=== PATIENT | female | born 1960 | race Caucasian/White ===

== ENCOUNTER 2018-12-28 08:37 | Inpatient (IN) ==
--- NOTE | 2018-11-27 10:45 | Anesthesiology Consultation ---
Date of Service November 27, 2018 Assessment & Plan (1) Encounter for pre-operative examination: Chart Review Chart Review: Acceptable Risk for Surgery and Patient seen in Pre Admission Testing Teaching & Discussion Instructed NPO after midnight before surgery, except medications with 15 cc of water. Medication instructions provided according to the PAT guidelines. History Surgery Operation Date: 12/28/18 07:00 Proposed Procedures p Right Total Shoulder Replacement - Cristian Montanez, Height/Weight Height: 5 ft Weight: 53.3 kg Allergies Allergy/AdvReac Type Severity Reaction Status Date / Time amoxicillin Allergy Mild Rash Verified 11/22/18 09:27 codeine Allergy Mild N/V Verified 11/22/18 09:27 iodine Allergy Mild THROAT Verified 11/22/18 09:27 SWELLING latex Allergy Mild SKIN Verified 11/22/18 09:27 IRRITATION Medications Home Medications Medication Instructions Recorded Confirmed Last Taken acetaminophen [Tylenol Extra 500 mg PO Q6H PRN 11/22/18 11/22/18 Unknown Strength] albuterol sulfate [ProAir HFA] 2 puff INHALATION QID PRN 11/22/18 11/22/18 Unknown amitriptyline 50 mg PO HS 11/22/18 11/22/18 Unknown cyanocobalamin (vitamin B-12) 1,000 mcg PO QAM 11/22/18 11/22/18 Unknown [Vitamin B-12] dextroamphetamine-amphetamine 30 mg PO BID 11/22/18 11/22/18 Unknown [Adderall] ferrous sulfate [Iron (ferrous 325 mg PO QAM 11/22/18 11/22/18 Unknown sulfate)] fluoxetine [Prozac] 20 mg PO QAM 11/22/18 11/22/18 Unknown levothyroxine [Synthroid] 125 mcg PO QAM 11/22/18 11/22/18 Unknown magnesium 500 mg PO QAM 11/22/18 11/22/18 Unknown meclizine 12.5 mg PO TID PRN 11/22/18 11/22/18 Unknown meloxicam [Mobic] 15 mg PO QAM 11/22/18 11/22/18 Unknown multivitamin 1 cap PO QAM 11/22/18 11/22/18 Unknown pantoprazole [Protonix] 40 mg PO QAM 11/22/18 11/22/18 Unknown potassium chloride 20 meq PO TID 11/22/18 11/22/18 Unknown rizatriptan 10 mg PO UD PRN 11/22/18 11/22/18 Unknown triamterene-hydrochlorothiazid 1 cap PO QAM 11/22/18 11/22/18 Unknown Past Medical History Medical History Asthma PRN INHALER, HAS NOT USED INHALER SINCE ESOPHAGEAL HERNIA REPAIR IN 06/19/18 Attention deficit disorder (ADD) GERD (gastroesophageal reflux disease) Hypothyroidism Migraine Osteoarthritis Temporomandibular joint disorder NEVER LOCKED--WORE A SPLINT FOR A WHILE YEARS AGO, SYMPTOMS RESOLVED. Exercise / Class Metabolic Activity 1 > 8 Run/Swim/Ski/Tennis ("VERY" ACTIVE, N CP OR SOB) Past Surgical History Surgical History History of lung surgery THORACOSCOPY --REPAIR OF COLLAPSED LUNG History of repair of hiatal hernia History of tonsillectomy and adenoidectomy Hx of laparoscopy FOR INFERTILITY Hx of partial thyroidectomy FOR BENIGN TUMOR S/P myringotomy with insertion of tube Past Anesthesia History No Family Hx of Anesthesia Complications and Other PT REPORTS HER O2 DIPPED A LITTLE LOW IN PACU AFTER ESOPHAGEAL HERNIA REPAIR IN 06/2018, HAD O2 VIA NC BIEFLY, NO REINTUBATION OR TRANSFER TO HIGHER LEVEL OF CARE. History of PONV No Hx of Motion Sickness and History of PONV Social History Smoking Status: Never smoker Do You Dip or Chew Tobacco: No Hx Alcohol Use: No Hx Substance Use: No substance use type: does not use Review of Systems Pt denies any recent chest pain, shortness of breath, palpitations, cough, fever or URI. +migraines, +seasonal allergies Physical Exam Vital Signs BP: 135/93 (pt reports usually elevated at medical appointments, takes at home and is OK. She is visibly anxious) P: 109bpm SPO2: 98% RA T: 98.1 F R: 16 ENMT Mouth: + chipped teeth (one broken L lower molar) and + small oral opening; no dental restorations and no loose teeth Thyromental Distance: < 3.5 Finger Breadths (2.5) Mallampati Class: II Neck + shortened thyromental distance; neck extension not limited Respiratory normal respiratory effort Auscultation: lungs clear to auscultation bilaterally Cardiovascular Rate/Rhythm: regular rhythm and + tachycardic Heart Sounds: no murmur Vessels: no carotid bruit Extremities: no edema Testing Laboratory Results 11/27/18 11:03 11/27/18 11:03 11/27/18 11/27/18 11:03 11:03 PT 10.3 INR 1.0 APTT 26.2 Blood Type A Positive Antibody Screen NEGATIVE Electrocardiogram Date: 11/27/18 Findings: + ST @ (102) Low voltage QRS. Chest X-Ray Date: 11/27/18 FINDINGS: The heart is at the upper limits of normal in size. There is no litzy lure. There is no focal bony consolidation. There are no pleural effusions. Small spring-shaped radiopacities within the upper abdomen, likely secondary to a prior hernia repair. IMPRESSION: No active disease in the chest.
--- NOTE | 2018-11-27 10:55 | PAT Medication Instructions ---
Medication Instructions Date of Service November 27, 2018 Home Medications acetaminophen [Tylenol Extra Strength] 500 mg PO Q6H PRN albuterol sulfate [ProAir HFA] 2 puff INHALATION QID PRN amitriptyline 50 mg PO HS cyanocobalamin (vitamin B-12) [Vitamin B-12] 1,000 mcg PO QAM dextroamphetamine-amphetamine [Adderall] 30 mg PO BID ferrous sulfate [Iron (ferrous sulfate)] 325 mg PO QAM fluoxetine [Prozac] 20 mg PO QAM levothyroxine [Synthroid] 125 mcg PO QAM magnesium 500 mg PO QAM meclizine 12.5 mg PO TID PRN meloxicam [Mobic] 15 mg PO QAM multivitamin 1 cap PO QAM pantoprazole [Protonix] 40 mg PO QAM potassium chloride 20 meq PO TID rizatriptan 10 mg PO UD PRN triamterene-hydrochlorothiazid 1 cap PO QAM ASK your surgeon for instructions meloxicam [Mobic] 15 mg PO QAM DO NOT take the morning of surgery cyanocobalamin (vitamin B-12) [Vitamin B-12] 1,000 mcg PO QAM dextroamphetamine-amphetamine [Adderall] 30 mg PO BID ferrous sulfate [Iron (ferrous sulfate)] 325 mg PO QAM magnesium 500 mg PO QAM multivitamin 1 cap PO QAM potassium chloride 20 meq PO TID triamterene-hydrochlorothiazid 1 cap PO QAM Take morning of surgery With a small sip of water, OTHERWISE NOTHING TO EAT OR DRINK AFTER MIDNIGHT: acetaminophen [Tylenol Extra Strength] 500 mg PO Q6H PRN (if needed, may be taken up to four hours before surgery) albuterol sulfate [ProAir HFA] 2 puff INHALATION QID PRN (if needed, and bring with you to the hospital) fluoxetine [Prozac] 20 mg PO QAM levothyroxine [Synthroid] 125 mcg PO QAM meclizine 12.5 mg PO TID PRN (if needed) pantoprazole [Protonix] 40 mg PO QAM rizatriptan 10 mg PO UD PRN (if needed) Take evening before surgery acetaminophen [Tylenol Extra Strength] 500 mg PO Q6H PRN (if needed) albuterol sulfate [ProAir HFA] 2 puff INHALATION QID PRN (if needed) amitriptyline 50 mg PO HS dextroamphetamine-amphetamine [Adderall] 30 mg PO BID meclizine 12.5 mg PO TID PRN (if needed) potassium chloride 20 meq PO TID rizatriptan 10 mg PO UD PRN (if needed) Other Notes If you have any questions please call us at [phone] or [phone] or [phone] or [phone]
--- NOTE | 2018-11-27 11:43 | XRay Report ---
XR chest Pre-admission PA/Lat CLINICAL HISTORY: Preoperative chest COMPARISON STUDY: No previous studies for comparison. FINDINGS: The heart is at the upper limits of normal in size. There is no failure. There is no focal bony consolidation. There are no pleural effusions. Small spring-shaped radiopacities within the uppe r abdomen, likely secondary to a prior hernia repair[ IMPRESSION: No active disease in the chest. Electronically signed by: Blake Julian M.D. 11/27/2018 11:42 AM
[2018-11-27 11:44] LABS: Basophils # (auto) 0.04 K/uL (0-0.2); Basophils % (auto) 0.7 %; Eosinophils # (auto) 0.09 K/uL (0-0.5); Eosinophils % (auto) 1.6 %; Hematocrit (blood only) 38.7 % (37-47); Hemoglobin 13.4 g/dL (12.0-16.0); Immature Granulocytes # (auto) 0.01 K/uL (0.00-0.02); Immature Granulocytes % (auto) 0.2 %; Lymphocytes # (auto) 1.53 K/uL (1.2-3.4); Lymphocytes % (auto) 26.5 %; Mean Corpuscular Hgb Conc 34.6 g/dL (32-36); Mean Corpuscular Volume 95.1 fL (80-100); Monocytes # (auto) 0.48 K/uL (0.11-0.59); Monocytes % (auto) 8.3 %; Neutrophils # (auto) 3.63 K/uL (1.4-6.5); Neutrophils % (auto) 62.7 %; Platelet Count 429 K/uL (130-400); RDW Coefficient of Variation 13.9 % (11.5-14.5); Red Blood Count 4.07 M/uL (4.2-5.4); White Blood Count 5.78 K/uL (4.8-10.8)
[2018-11-27 11:51] LABS: BUN Creatinine Ratio 19.9 (10-20); Calcium 9.7 mg/dl (8.5-10.1); Creatinine Clr Calc Pharmacy 56.5 ml/min; Est GFR (African American) 97.1; Est GFR (Non-African American) 83.8; Potassium 3.9 mmol/L (3.5-5.1)
[2018-11-27 12:04] LABS: Partial Thromboplastin Time 26.2 Seconds (21.0-31.0); Prothrombin Time 10.3 Seconds (9.0-12.0)
--- NOTE | 2018-12-27 14:33 | History & Physical Report ---
Date of Service December 27, 2018 Assessment & Plan (1) Avascular necrosis of head of humerus: We will proceed with a right total shoulder arthroplasty. Postoperatively she will be placed in a sling and kept overnight for postop medical management. She plans to use [facility] outpatient physical therapy upon discharge. Present on Admission?: Yes History of Present Illness Chief Complaint: Avascular necrosis of the right shoulder Primary Care Provider: Zia Perea is a pleasant 58-year-old female who is been dealing with a 6-month history of increasing right shoulder pain. She does not recall any traumatic events. X-rays and especially MRI of the shoulder showed advanced osteoarthrit is and avascular necrosis. After failing conservative treatment, she has elected proceed with a right total shoulder arthroplasty. Allergies Allergy/AdvReac Type Severity Reaction Status Date / Time amoxicillin Allergy Mild Rash Verified 11/22/18 09:27 codeine Allergy Mild N/V Verified 11/22/18 09:27 iodine Allergy Mild THROAT Verified 11/22/18 09:27 SWELLING latex Allergy Mild SKIN Verified 11/22/18 09:27 IRRITATION Home Medications Home Medications Medication Instructions Recorded Confirmed Type acetaminophen [Tylenol Extra 500 mg PO Q6H PRN 11/22/18 11/22/18 History Strength] albuterol sulfate [ProAir HFA] 2 puff INHALATION QID PRN 11/22/18 11/22/18 History amitriptyline 50 mg PO HS 11/22/18 11/22/18 History cyanocobalamin (vitamin B-12) 1,000 mcg PO QAM 11/22/18 11/22/18 History [Vitamin B-12] dextroamphetamine-amphetamine 30 mg PO BID 11/22/18 11/22/18 History [Adderall] ferrous sulfate [Iron (ferrous 325 mg PO QAM 11/22/18 11/22/18 History sulfate)] fluoxetine [Prozac] 20 mg PO QAM 11/22/18 11/22/18 History levothyroxine [Synthroid] 125 mcg PO QAM 11/22/18 11/22/18 History magnesium 500 mg PO QAM 11/22/18 11/22/18 History meclizine 12.5 mg PO TID PRN 11/22/18 11/22/18 History meloxicam [Mobic] 15 mg PO QAM 11/22/18 11/22/18 History multivitamin 1 cap PO QAM 11/22/18 11/22/18 History pantoprazole [Protonix] 40 mg PO QAM 11/22/18 11/22/18 History potassium chloride 20 meq PO TID 11/22/18 11/22/18 History rizatriptan 10 mg PO UD PRN 11/22/18 11/22/18 History triamterene-hydrochlorothiazid 1 cap PO QAM 11/22/18 11/22/18 History Past Med/Surg History Medical History Asthma PRN INHALER, HAS NOT USED INHALER SINCE ESOPHAGEAL HERNIA REPAIR IN 06/19/18 Attention deficit disorder (ADD) GERD (gastroesophageal reflux disease) Hypothyroidism Migraine Osteoarthritis Temporomandibular joint disorder NEVER LOCKED--WORE A SPLINT FOR A WHILE YEARS AGO, SYMPTOMS RESOLVED. Surgical History History of lung surgery THORACOSCOPY --REPAIR OF COLLAPSED LUNG History of repair of hiatal hernia History of tonsillectomy and adenoidectomy Hx of laparoscopy FOR INFERTILITY Hx of partial thyroidectomy FOR BENIGN TUMOR S/P myringotomy with insertion of tube Social History Preferred Language: Arabic Communication Ability: Effective Wood Form Builder Required: No Beliefs That Will Affect Care: None Current Living Situation: Spouse Other Information That Helps Us Care for You: No Feels Safe at Home: Yes Safety Concerns: Feels Safe At This Time Smoking Status: Never smoker Do You Dip or Chew Tobacco: No Second Hand Exposure: No Tobacco Cessation Education Requested by Patient: No Hx Alcohol Use: No Hx Substance Use: No Review of Systems All systems reviewed & are unremarkable except as noted in HPI & below Physical Exam Constitutional: WD/WN, vitals as above Eyes: PERRL, conjunctivae normal, anicteric sclerae ENMT: external ear and nose normal, oropharynx normal Neck: trachea midline, no thyromegaly Respiratory: normal respiratory effort Cardiovascular: RRR, no murmur, no edema Gastrointestinal (Abdomen): normal bowel sounds, soft, nontender, no hepatosplenomegaly Musculoskeletal: Physical examination of the right shoulder reveals decreased range of motion and crepitis throughout. There is good strength with full can testing and external rotation. There is tenderness palpation along the anterior glenohumeral joint line. The right upper extremity is neurovascularly intact. Psychiatric: A+Ox3, euthymic affect Results & Data Diagnostic Findings Radiographs of the right shoulder show osteoarthritis of the glenohumeral joint. There is joint space narrowing, osteophyte formation. MRI of the shoulder does show advancing osteoarthritis and signs of avascular necrosis. The rotator cuff is intact.
[~2018-12-28 08:37] MED LIST: ACETAMINOPHEN 500 MG TAB PO SCH; CEFAZOLIN 2000MG 2,000 MG/15 ML SYR IV SCH; FAMOTIDINE 20 MG TAB PO SCH; GABAPENTIN 300 MG x 2 PO SCH; LR 15ML/HR IV SCH; LR 60ML/HR IV SCH; ROPIVACAINE 0.5% HCL/PF 150 MG, BUPIVACAINE 0.5% MPF 30 ML, EPINEPHrine 30MG/30ML (OR U... INFIL SCH; TRANEXAMIC ACID 1,000 MG **IV Intra-op IV SCH; TRANEXAMIC ACID 1,000 MG **IV Pre-op IV SCH
--- NOTE | 2018-12-28 09:38 | History & Physical Bridge Note ---
Date of Service December 28, 2018 History & Physical Bridge Note I have examined the patient, reviewed the History & Physical and in the interval since the performance of the History & Physical I have noted the following changes of clinical significance: no changes noted
[2018-12-28] MEDS ORDERED: BUPIVACAINE 0.5 % 5 MG/1 ML PF 10ML VIAL ONE (09:48)
[2018-12-28] MEDS ORDERED: SCOPOLAMINE 1.5 MG TDSY ONE (10:03)
[2018-12-28] MEDS ORDERED: GLYCOPYRROLATE 0.2 MG/ML VIAL ONE (10:21)
[2018-12-28] MEDS ORDERED: NEOSTIGMINE METHYLSULFATE 5 MG/5 ML SYR ONE (10:21)
[2018-12-28] MEDS ORDERED: LIDOCAINE HCL 2% 2 ML VIAL/AMP(20MG/ML) INFIL ONE (10:21)
[2018-12-28] MEDS ORDERED: DEXAMETHASONE SOD INJ 4 MG/ML VIAL ONE (10:21)
[2018-12-28] MEDS ORDERED: ROCURONIUM BROMIDE 10 MG/ML 5 ML VIAL ONE (10:21)
[2018-12-28] MEDS ORDERED: ONDANSETRON INJ 2 MG/ML 2 ML VIAL ONE (10:21)
[2018-12-28] MEDS ORDERED: PROPOFOL IV EMULSION 10 MG/ML 20 ML VIAL IV ONE (10:21)
[2018-12-28] MEDS ORDERED: LARYING-O-JET KIT (LTA) ONE (10:21)
[2018-12-28] MEDS ORDERED: fentaNYL citrate 100 MCG/2 ML VIAL ONE (10:22)
[2018-12-28] MEDS ORDERED: MIDAZOLAM HCL 1 MG/ML 2ML VIAL ONE (10:22)
[2018-12-28] MEDS ORDERED: PROMETHAZINE HCL 6.25 MG in SODIUM CHLORIDE 0.9% 50 ML IV PRN (10:50)
[2018-12-28] MEDS ORDERED: ONDANSETRON INJ 2 MG/ML 2 ML VIAL IV PRN ×2 (10:50→14:22)
[2018-12-28] MEDS ORDERED: HYDROmorphone INJ 1 MG/ML SYRINGE IV PRN (10:50)
[2018-12-28] MEDS ORDERED: ATROPINE SULFATE 0.1 MG/ML 10ML SYR IV PRN (10:50)
[2018-12-28] MEDS ORDERED: KETOROLAC 30 MG/ML VIAL IV PRN (10:50)
[2018-12-28] MEDS ORDERED: ORTHO JOINT ANESTHETIC ONE (10:53)
--- NOTE | 2018-12-28 12:51 | Operative Report ---
Post Operative Report Pre & Post Diagnosis Operation Date: 12/28/18 11:50 Pre-Op Diagnosis: Right Shoulder avascular necrosis Post-Op Diagnosis: Right Shoulder avascular necrosis Procedure Operation Date: 12/28/18 11:50 Actual Procedures p Right Total Shoulder Replacement(Right) - Cristian Montanez DO Surgeon Cristian Montanez DO Student Financial Aid Manager Cristian Rasheed PAC Estimated Blood Loss 150 Findings Consistent with Post-Op Diagnosis Specimens Right humeral head Complications none Disposition Disposition: Recovery Room Indications Brit is a pleasant 58-year-old female presented my office with chronic increasing right shoulder pain. MRI and clinical examination were diagnostic for avascular necrosis of the right shoulder. After failing conservative treatment, she elected to proceed with a right total shoulder arthroplasty. Description of Procedure Implants used: I used a Biomet Comprehensive total shoulder arthroplasty system with a size 9 press fit mini humeral stem, a size 42 x 18 eccentric humeral head, and a small size glenoid with a Regenerex peg. The glenoid was cemented in place with Palacos G cement. The patient arrived at [facility] for the above procedure. There were seen in the preoperative holding area and the operative extremity was identified and signed. They were given a preoperative antibiotic and an interscalene nerve block. They were taken back to the operating room, laid on table in supine position, and put under general anesthesia. They were then put into the beachchair position. The shoulder was then prepped and draped in sterile fashion. A timeout was done and the patient in the operative extremity was properly identified. A deltopectoral approach was used. Dissection was taken down through the fascia and the deltoid was retracted laterally and the conjoined tendon was retracted medially. The anterior shoulder was exposed. The long head of the biceps tendon was tenodesed to the upper border of the pectoralis major. The subscapularis was then released off the lesser tuberosity with a centimeter of cuff tissue remaining. The inferior capsule was released and the humeral head was dislocated. The rotator cuff was inspected and intact. A canal finding reamer was sent down the center of the humeral canal. Sequential reaming up to a size 9 reamer was done. Offset reamer a proximal humeral resection guide was placed. The proximal humerus was resected at 135 of inclination and 30 of retroversion. Inferior osteophytes were then removed and the glenoid was exposed. Time was spent doing an appropriate labral release. The glenoid measured to be a size small. A 3.2 mm Steinmann pin was placed in the central hole of the glenoid vault pin guide. The glenoid was then reamed with a propeller reamer. The central post cutter was then used to prepare for the central boss. The cannulated peripheral peg drill guide was then placed and 3 peg holes were drilled. The final size small glenoid was then cemented in place with Palacos G cement. Surrounding soft tissues were then injected with 100 cc of an orthopedic pain control cocktail. Once cement had dried the proximal humerus was once again exposed. Sequential broaching of the humerus up to a size 9 broach was done. Off that broach a size 42 x 18 eccentric humeral head was trialed. The shoulder was then reduced, brought through a full range of motion and felt to be stable. The shoulder was then dislocated and the broach was removed. The final size 9 mini humeral stem implant was then impacted into place. A size 42 x 18 eccentric humeral head was then impacted onto the humeral stem. The shoulder was then reduced and once again brought through a full range of motion and felt to be stable. The subscapularis was then tenodesed back to the lesser tuberosity with transosseous FiberWire sutures and side to side sutures with the arm in 45 of external rotation. 2 sutures were placed in the lateral rotator interval. A dilute betadyne lavage was then done for 3 minutes. The joint was then irrigated with normal saline solution. Hemostasis was obtained. The skin was then closed with 2-0 Vicryl, 3-0V lock suture, and yazmin. A soft dressing was placed as well as a regular arm sling. The patient was then extubated and transferred to a hospital bed. There were taken to the postanesthesia care unit in stable condition. The tolerated the procedure well. I attest to the content of the Intraoperative Record and any orders documented therein. Any exceptions are noted below.
--- NOTE | 2018-12-28 13:40 | XRay Report ---
XR shoulder RT min 2V routine CLINICAL HISTORY: Post shoulder surgery COMPARISON: Right shoulder radiographs November 27, 2018. FINDINGS: Alignment of the right shoulder arthroplasty is anatomic. There is no fracture or unexpect ed radiopaque foreign body. There are skin yazmin. Postoperative findings within the right lung are incidentally noted. Right basilar opacity favors atelectasis. IMPRESSION: Expected findings following right shoulder arthroplasty. Electronically signed by: Diego Hammer M.D. 12/28/2018 1:39 PM
--- NOTE | 2018-12-28 13:44 | Anesthesiology Progress Note ---
Date of Service December 28, 2018 Anesthesia Post Procedure Vital Signs Vital Signs: Temp Pulse Resp BP Pulse Ox 12/28/18 13:40 94 H 17 102/80 97 12/28/18 13:30 90 14 112/72 95 12/28/18 13:20 36 C L 82 15 109/73 95 12/28/18 13:10 36 C L 85 15 114/75 94 12/28/18 09:31 36.4 C L 72 20 121/86 95 Transfer of Care Handoff Completed per policy Notes Mental Status: alert / awake / arousable Patient Amnestic to Procedure: Yes Nausea / Vomiting: adequately controlled Pain: adequately controlled Airway Patency, RR, SpO2: stable & adequate BP & HR: stable & adequate Hydration State: stable & adequate Anesthetic Complications: no major complications apparent
[2018-12-28] MEDS ORDERED: HYDROmorphone INJ 0.5 MG/0.5 ML SYR IV PRN (14:22)
[2018-12-28] MEDS ORDERED: MAGNESIUM HYDROXIDE SUSP 30 ML UDC PO PRN (14:22)
[2018-12-28] MEDS ORDERED: NALOXONE HCL 0.4 MG/1 ML VIAL/CARP IV PRN (14:22)
[2018-12-28] MEDS ORDERED: OXYCODONE HCL IR 5 MG TAB (IMMEDIATE RELEASE) PO PRN (14:22)
[2018-12-28] MEDS ORDERED: MECLIZINE 12.5 MG TAB PO PRN (14:22)
[2018-12-28] MEDS ORDERED: ALBUTEROL HFA 8 GM INHALER INH PRN (14:22)
[2018-12-28] MEDS ORDERED: METOCLOPRAMIDE HCL INJ 5 MG/ML 2 ML VIAL IV PRN (14:22)
[2018-12-28] MEDS ORDERED: BISACODYL 10 MG SUPP PR PRN (14:22)
[2018-12-28] MEDS ORDERED: RIZATRIPTAN BENZOATE 10 MG TAB PO PRN (14:22)
[2018-12-28] MEDS: SODIUM CHLORIDE 0.9% 1000ML 1,000 ML IV SCH ×2 (14:53→23:38)
[2018-12-28] MEDS: ACETAMINOPHEN 500 MG TAB PO SCH ×2 (16:05→23:38)
[2018-12-28] MEDS: KETOROLAC 30 MG/ML VIAL IV SCH ×2 (16:06→21:23)
[2018-12-28] MEDS: CEFAZOLIN 2000MG 2,000 MG/15 ML SYR IV SCH (19:48)
[2018-12-28] MEDS: POTASSIUM CHLORIDE 20 MEQ TABCR PO SCH (19:48)
[2018-12-28] MEDS ORDERED: SENNA 8.6 MG TAB PO SCH (21:00)
[2018-12-28] MEDS ORDERED: AMITRIPTYLINE HCL 50 MG TAB PO SCH (21:00)
[2018-12-28] MEDS: DOCUSATE SODIUM 100 MG CAP PO SCH (21:22)
[2018-12-29] MEDS: CEFAZOLIN 2000MG 2,000 MG/15 ML SYR IV SCH (03:39)
[2018-12-29] MEDS: KETOROLAC 30 MG/ML VIAL IV SCH ×2 (03:40→10:39)
[2018-12-29] MEDS ORDERED: LEVOTHYROXINE SODIUM 125 MCG TABLET PO SCH (06:30)
[2018-12-29 06:36] LABS: Hematocrit (blood only) 31.5 % (37-47); Hemoglobin 10.6 g/dL (12.0-16.0); Immature Granulocytes # (auto) 0.05 K/uL (0.00-0.02); Immature Granulocytes % (auto) 0.3 %; Lymphocytes # (auto) 0.68 K/uL (1.2-3.4); Lymphocytes % (auto) 3.7 %; Mean Corpuscular Hgb Conc 33.7 g/dL (32-36); Mean Corpuscular Volume 96.3 fL (80-100); Mean Platelet Volume 8.9 fL (7.4-10.4); Monocytes # (auto) 1.19 K/uL (0.11-0.59); Monocytes % (auto) 6.5 %; Neutrophils # (auto) 16.47 K/uL (1.4-6.5); Neutrophils % (auto) 89.5 %; Platelet Count 383 K/uL (130-400); RDW Coefficient of Variation 13.4 % (11.5-14.5); RDW Standard Deviation 46.8 fL (36.4-46.3); Red Blood Count 3.27 M/uL (4.2-5.4); White Blood Count 18.39 K/uL (4.8-10.8)
[2018-12-29 07:11] LABS: BUN Creatinine Ratio 22.6 (10-20); Calcium 7.6 mg/dl (8.5-10.1); Creatinine Clr Calc Pharmacy 50.1 ml/min; Est GFR (African American) 83.9; Est GFR (Non-African American) 72.4; Potassium 3.8 mmol/L (3.5-5.1)
[2018-12-29] MEDS: ACETAMINOPHEN 500 MG TAB PO SCH (07:25)
[2018-12-29] MEDS: DOCUSATE SODIUM 100 MG CAP PO SCH (08:33)
[2018-12-29] MEDS: POTASSIUM CHLORIDE 20 MEQ TABCR PO SCH (08:33)
[2018-12-29] MEDS ORDERED: PANTOprazole 40 MG TAB PO SCH (09:00)
[2018-12-29] MEDS ORDERED: FLUOXETINE HCL 20 MG CAP PO SCH (09:00)
[2018-12-29] MEDS ORDERED: MAGNESIUM OXIDE 400 MG TAB PO SCH (09:00)
[2018-12-29] MEDS ORDERED: TRIAMTERENE/HCTZ 37.5/25MG CAP PO SCH (09:00)
[2018-12-29] MEDS ORDERED: MULTIVITAMIN TAB PO SCH ×2 (09:00)
[2018-12-29] MEDS ORDERED: FERROUS SULFATE 325 MG TAB PO SCH (09:00)
--- NOTE | 2018-12-29 09:09 | Orthopedic Progress Note ---
Date of Service December 29, 2018 Assessment & Plan (1) Avascular necrosis of head of humerus: Overall she is doing very well. She not having any pain in the right shoulder at this time. She will be seen by physical therapy today for range of motion exercises. She will be discharged home later this morning. She plans to go to outpatient physical therapy up in [facility]. She will follow-up with orthopedics in 2 weeks. Present on Admission?: Yes Brittany Perea was seen and examined at bedside this morning. Overall she is doing very well. She really does not have any feeling in her left shoulder. She is happy with her progress this point. She has no complaints. Physical Exam Musculoskeletal: On physical examination of her shoulder, the dressing is clean and dry. She is wearing her sling as instructed. She has active extension of her thumb and range of motion of her fingers. I was not able to check the axillary nerve yet. Results & Data Vital Signs (Past 12 Hours) Vital Signs Temp Pulse Resp BP Pulse Ox 12/29/18 07:18 36.9 C 84 16 101/65 97 12/29/18 03:19 36.7 C 81 16 92/56 L 97 12/28/18 23:48 92/58 L 95 12/28/18 23:33 36.6 C 81 16 90/51 L 96 Laboratory Results H & H 11/27/18 12/29/18 Range/Units 11:03 06:18 Hgb 13.4 10.6 L (12.0-16.0) g/dL Hct 38.7 31.5 L (37-47) % Coagulation 11/27/18 Range/Units 11:03 INR 1.0 (0.9-1.1) Diagnostic Findings Postoperative x-rays show the prosthesis to be in anatomic alignment without any evidence of fracture, dislocation, or loosening.
--- NOTE | 2018-12-29 09:10 | Discharge Summary ---
Date of Service December 29, 2018 Admission HPI Per Admitting Provider Brit is a pleasant 58-year-old female who is been dealing with a 6-month history of increasing right shoulder pain. She does not recall any traumatic events. X-rays and especially MRI of the shoulder showed advanced o steoarthritis and avascular necrosis. After failing conservative treatment, she has elected proceed with a right total shoulder arthroplasty. Specialty Data Orthopedic H & H 11/27/18 12/29/18 Range/Units 11:03 06:18 Hgb 13.4 10.6 L (12.0-16.0) g/dL Hct 38.7 31.5 L (37-47) % Coagulation 11/27/18 Range/Units 11:03 INR 1.0 (0.9-1.1) Discharge Data Procedures Performed Operation Date: 12/28/18 11:50 Actual Procedures p Right Total Shoulder Replacement(Right) - Cristian Montanez DO Hospital Course (1) Avascular necrosis of head of humerus: On December 28, 2018.arrived at [facility] and underwent a right total shoulder arthroplasty without complication. She had a general anesthetic and a right interscalene nerve block. Postoperatively she was placed in a sling and discharged to general orthopedic floors. Her hospital course was uneventful. On postop day #1 her H&H was stable and her pain was well controlled. She was able to participate well with physical therapy doing range of motion exercises. She was then discharged home with outpatient physical therapy and [facility]. She will follow-up with orthopedics in 2 weeks. Discharge Instructions Home Medications Medication Instructions Recorded Confirmed acetaminophen [Tylenol Extra 500 mg PO Q6H PRN 11/22/18 12/28/18 Strength] albuterol sulfate [ProAir HFA] 2 puff INHALATION QID PRN 11/22/18 12/28/18 amitriptyline 50 mg PO HS 11/22/18 12/28/18 cyanocobalamin (vitamin B-12) 1,000 mcg PO QAM 11/22/18 12/28/18 [Vitamin B-12] ferrous sulfate [Iron (ferrous 325 mg PO QAM 11/22/18 12/28/18 sulfate)] fluoxetine [Prozac] 20 mg PO QAM 11/22/18 12/28/18 levothyroxine [Synthroid] 125 mcg PO QAM 11/22/18 12/28/18 magnesium 500 mg PO QAM 11/22/18 12/28/18 meclizine 12.5 mg PO TID PRN 11/22/18 12/28/18 meloxicam [Mobic] 15 mg PO QAM 11/22/18 12/28/18 multivitamin 1 cap PO QAM 11/22/18 12/28/18 pantoprazole [Protonix] 40 mg PO QAM 11/22/18 12/28/18 potassium chloride 20 meq PO TID 11/22/18 12/28/18 rizatriptan 10 mg PO UD PRN 11/22/18 12/28/18 triamterene-hydrochlorothiazid 1 cap PO QAM 11/22/18 12/28/18 dextroamphetamine-amphetamine 30 mg PO BID 12/28/18 12/28/18 [Adderall XR] Previous Rx's Medication Instructions Recorded hydrocodone-acetaminophen 1 tab PO Q6H PRN #20 tab 12/29/18
--- NOTE | 2018-12-29 12:10 | Anesthesiology Progress Note ---
Date of Service December 29, 2018 Anesthesia Post Procedure Vital Signs Vital Signs: Temp Pulse Pulse Resp BP Pulse Ox 12/29/18 10:08 36.9 C 84 16 101/65 97 12/29/18 07:18 36.9 C 84 16 101/65 97 12/29/18 03:19 36.7 C 81 16 92/56 L 97 12/28/18 23:48 92/58 L 95 12/28/18 23:33 36.6 C 81 16 90/51 L 96 12/28/18 20:35 36.7 C 81 15 91/55 L 92 12/28/18 17:05 83 16 94/59 L 98 12/28/18 16:05 73 17 96/61 L 97 12/28/18 15:05 36.4 C L 72 16 94/62 L 96 12/28/18 14:35 36.4 C L 77 16 108/71 94 12/28/18 14:05 36.6 C 82 14 107/71 96 12/28/18 13:50 36.3 C L 86 16 106/68 97 12/28/18 13:40 94 H 17 102/80 97 12/28/18 13:30 90 14 112/72 95 12/28/18 13:20 36 C L 82 15 109/73 95 12/28/18 13:10 36 C L 85 15 114/75 94 Notes Mental Status: alert / awake / arousable and participated in evaluation Patient Amnestic to Procedure: Yes Nausea / Vomiting: see Notes below Pain: adequately controlled Airway Patency, RR, SpO2: stable & adequate BP & HR: stable & adequate Hydration State: stable & adequate Anesthetic Complications: no major complications apparent and Pt Satisfied with anesthetic care
== END 2018-12-29 11:30 | disposition home or self-care (01) | DRG 483 ==
LOC: ASU 08:37 → 3E 13:18